=== PATIENT | male | born 1945 | race Caucasian/White ===

== ENCOUNTER 2018-11-10 12:30 | Emergency (ER) | payer OTHER, MEDICAID ==
[~2018-11-10] VITALS: Wt 61.6 kg
--- NOTE | 2018-11-10 12:57 | ERD ---
ER Documentation Chief Complaint Chief Complaint 45 min onset of weakness n/v after walking. no cp mild dizziness HPI 72-year-old male history of hypertension, anxiety chronic back pain presents the ED via ambulance planing of dizziness, nausea and vomiting. Patient awoke from a nap and then while rolling over experienced acute onset of severe, whirling, dizziness with nausea and multiple episodes of nonbloody nonbilious emesis. Symptoms are exacerbated by any head movement and relieved by remaining, supine and mobile with eyes closed. Chronic tinnitus but denies hearing changes, ear pain or discharge. No recent illnesses, URI symptoms, nasal congestion, rhinorrhea or odynophagia. Denies headache, visual changes, focal weakness or numbness. No syncope or loss of consciousness. No abdominal pain, chest pain, palpitations or shortness of breath. No neck or back pain. No skin rash. No fevers or chills. ROS All systems reviewed and are negative except as per history of present illness. Medications Home Meds Active Scripts Ondansetron (Ondansetron Odt) 4 Mg Tab.rapdis, 4 MG PO Q6H PRN for NAUSEA AND/OR VOMITING, #10 TAB Prov:PREETHI DE LUNA MD 11/10/18 Meclizine Hcl* (Antivert*) 12.5 Mg Tab, 25 MG PO Q6H PRN for DIZZINESS, #12 TAB Prov:PREETHI DE LUNA MD 11/10/18 Reported Medications Losartan Potassium* (Losartan Potassium*) 25 Mg Tablet, 25 MG PO DAILY, TAB 11/10/18 Amlodipine Besylate* (Amlodipine Besylate*) 10 Mg Tablet, 10 MG PO DAILY, #30 TAB 11/10/18 Hydrocodone/Acetaminophen ([place] 7.5-325 Tablet) 1 Each Tablet, 1 EACH PO DAILY PRN for ANXIETY, TAB 11/10/18 Zolpidem Tartrate* (Zolpidem Tartrate*) 10 Mg Tablet, 10 MG PO QHS PRN for INSOMNIA, #30 TAB 11/10/18 Ranitidine Hcl* (Ranitidine Hcl*) 150 Mg Tablet, 150 MG PO HS, #30 TAB 11/10/18 Diphenhydramine Hcl (Banophen) 25 Mg Tablet, 25 MG PO DAILY PRN for PRN, TAB 11/10/18 Discontinued Reported Medications Ranitidine Hcl* (Ranitidine Hcl*) 150 Mg Tablet, 150 MG PO HS, #30 TAB 11/10/18 Allergies Allergies: Coded Allergies: No Known Allergy (Unverified , 11/10/18) PMhx/Soc Reviewed in chart. As per HPI. History of Surgery: Yes (arm injury/ repair. Left carotid endarterectomy) Hx Neurological Disorder: Yes (stroke) Hx Cardiac Disorders: Yes (HTN, cholesterol) Hx Psychiatric Problems: Yes (Anxiety and insomnia) Hx Miscellaneous Medical Probl: Yes (carotid atery stenosis, chronic back pain) Hx Alcohol Use: No Hx Substance Use: No Hx Tobacco Use: No Smoking Status: Never smoker FmHx No cancer, sudden cardiac or stroke Physical Exam Vitals Vital Signs Date Temp Pulse Resp B/P (MAP) Pulse Ox O2 O2 Flow FiO2 Time Delivery Rate 11/10/18 68 16 126/58 96 Room Air 17:24 (80) 11/10/18 75 30 118/92 100 Room Air 12:51 (101) 11/10/18 97.8 70 18 98/64 (75) 98 12:43 Physical Exam Const: Moderate distress Head: Atraumatic Eyes: Pupils equal reactive to light, extraocular movements are intact. Normal Conjunctiva. Nystagmus with rapid beat to the left, fatigable. ENT: Normal External Ears, Nose and Mouth. Tympanic membranes are benton and mobile bilaterally. No discharge. Pharynx is clear without erythema or exudate. Neck: Full range of motion. Nontender. Carotids are 2+ bilaterally without bruits. Resp: Breath sounds are equal and clear to auscultation bilaterally Cardio: Regular rate and rhythm, no murmurs, gallops or rubs. Abd: Soft, non tender, non distended. No rebound or guarding. Normal bowel sounds. No masses. Skin: No petechiae or rashes Back: No midline or flank tenderness Ext: No cyanosis, or edema. Pulses are 4+ in all extremities. Neur: Awake and alert. Cranial nerves II through XII are grossly intact. Motor and sensory equal bilaterally. No pronator drift. DTRs are symmetrical. Plantar reflexes are downgoing. Gait is not tested. Psych: Cooperative, anxious but not depressed. Result Diagram: 11/10/18 1330 11/10/18 1330 Results 24 hrs Laboratory Tests Test 11/10/18 13:30 White Blood Count 14.5 10^3/ul Red Blood Count 4.58 10^6/ul Hemoglobin 13.6 g/dl Hematocrit 39.8 % Mean Corpuscular Volume 86.9 fl Mean Corpuscular Hemoglobin 29.7 pg Mean Corpuscular Hemoglobin Concent 34.2 g/dl Red Cell Distribution Width 12.0 % Platelet Count 331 10^3/UL Mean Platelet Volume 10.7 fl Immature Granulocytes % 1.300 % Neutrophils % 70.6 % Lymphocytes % 18.9 % Monocytes % 7.9 % Eosinophils % 0.7 % Basophils % 0.6 % Nucleated Red Blood Cells % 0.0 /100WBC Immature Granulocytes # 0.190 10^3/ul Neutrophils # 10.2 10^3/ul Lymphocytes # 2.7 10^3/ul Monocytes # 1.1 10^3/ul Eosinophils # 0.1 10^3/ul Basophils # 0.1 10^3/ul Nucleated Red Blood Cells # 0.0 10^3/ul Prothrombin Time 12.0 Sec Prothrombin Time Ratio 0.9 INR International Normalized Ratio 0.88 Activated Partial Thromboplast Time 27.9 Sec Sodium Level 138 mmol/L Potassium Level 3.6 mmol/L Chloride Level 96 mmol/L Carbon Dioxide Level 20 mmol/L Anion Gap 22 Blood Urea Nitrogen 15 mg/dl Creatinine 0.98 mg/dl Est Glomerular Filtrat Rate mL/min mL/min Glucose Level 140 mg/dl Calcium Level 9.5 mg/dl Troponin I < 0.012 ng/ml Current Medications Medications Dose Sig/Evelyn Start Time Status Last (Trade) Ordered Route PRN Stop Time Admin Dose Reason Admin Sodium 500 ml @ Q1H STAT 11/10/18 DC 11/10/18 Chloride 500 mls/hr IV 13:09 13:17 11/10/18 14:08 10 mg ONCE STAT 11/10/18 DC 11/10/18 Metoclopramid IV 13:09 13:18 e HCl 11/10/18 13:12 (Reglan) Ondansetron 4 mg ONCE STAT 11/10/18 DC 11/10/18 HCl (Zofran IV 13:09 13:17 Inj) 11/10/18 13:12 25 mg ONCE STAT 11/10/18 DC 11/10/18 Diphenhydrami IV 13:09 13:17 ne HCl 11/10/18 13:12 (Benadryl) Procedures/MDM DOCUMENTS REVIEWED: ED nurse, no prior records. EKG: Time: 1253. Sinus rhythm. Ventricular rate 76. Normal CA and QRS. QTc borderline prolonged at 483 ms. No ectopy. No acute ST-T wave changes my Interpretation IMAGING: PROCEDURE: CT head CLINICAL INDICATION: Vertigo and dizziness TECHNIQUE: Contiguous 2.5 mm axial images were obtained from the vertex to the skull base. No intravenous contrast was administered. The calculated dose length product (DLP) = 634.23 mGy-cm. CTDlvol = 39.25 mGy. One or more of the following dose reduction techniques were used: Automated exposure control, adjustment of the mA and or KV according to patient size, or use of iterative reconstruction technique. DICOM images are available. COMPARISON: None FINDINGS: There is no acute intracranial hemorrhage or acute territorial infarct there is an old left basal ganglial right external capsule lacunar infarcts. No mass or mass effect is seen on this noncontrast study. Age appropriate cortical and central atrophy is seen. The ventricles are normal in size for the degree of atrophy. Moderate small vessel ischemic changes in the periventricular white matter. Visualized paranasal sinuses are normally aerated. The bony calvarium is unremarkable. IMPRESSION: 1. No acute intracranial hemorrhage or acute territorial infarct. 2. Old bilateral lacunar infarcts. 3. Age-related cortical and central atrophy. 4. Moderate small vessel ischemic change in periventricular white matter RPTAT: HH .Julio Petersen MD, MD Date Time Electronically viewed and signed by .Julio Petersen MD, on 11/10/2018 14:04 .W/ REEXAMINATION/REEVALUATION: Time: 14:14. VS as per nursing notes. Improving. Mild nausea but no vomiting. Abdomen soft, nontender. Time: 15:40. Vital signs as documented. Clinically improved. Minimal residual dizziness. Time: 17:22. Symptoms resolved. No dizziness, nausea or vomiting. Taking PO's well. Ambulatory with a steady gait. OBSERVATION NOTE: At 13:18 the patient was entered into observation status to es tablish the need for admission. During this time the patient was treated for dizziness. Additionally, extensive evaluation including, CBC, chemistry, EKG, troponin and CT of the brain were preformed with results interpreted as above. Vitals signs were monitored and multiple, frequent repeat exams were performed At 17:22 the patient was reexamined; vital signs are normal, afebrile, dizziness resolved, no nausea/vomiting, ambulatory with a steady gait and tolerating PO's. Based on these findings the patient was discharged from observation as it was determined that the patient was improved and met criteria for discharge. TOTAL OBSERVATION TIME: 4 Hours. 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 Differential diagnosis includes but is not limited to benign position al vertigo, Mnire's disease, labyrinthitis, cardiac dysrhythmia, TIA/CVA, intracranial hemorrhage, seizure, meningitis, encephalitis, elevated ICP, acute bleeding, aortic dissection, carotid artery dissection and abdominal aortic aneurysm are considered. CBC reveals mild leukocytosis and anemia but no thrombocytopenia. Chemistry to evaluate for electrolyte abnormalities, hypoglycemia and renal insufficiency is unremarkable. EKG is negative for ischemic changes or dysrhythmia. Troponin is negative. CT of the brain to evaluate for hemorrhage, ischemia, mass and hydrocephalus reveals old lacunar infarcts, cortical atrophy and and small vessel ischemic changes but no extra- axial fluid collections or acute ischemic changes. Patient presents with signs and symptoms symptoms consistent with peripheral vertigo and an acute vestibular syndrome likely benign positional vertigo. The overall picture does not suggest posterior CVA or vertebrobasilar TIA. Abdominal exam is completely benign without tenderness, rebound, guarding, signs of peritonitis or pulsatile mass and advanced imaging is not indicated. Symptoms resolved completely with antihistamines and antiemetics. Patient's observed in the ED for over 4 hours. Neurologic symptoms have been evaluated in the department and have stabilized. Of note is patient's h/o chronic pain and he receives monthly prescriptions for [place] 5/325mg #100 and Ambien 10 mg #30. Stable for discharge with precautionary instructions and outpatient follow-up as counseled. Counseled patient and family regarding diagnosis, diagnostic results and for follow-up. Departure Diagnosis: Primary Impression: Dizziness Additional Impressions: Peripheral vertigo Laterality: unspecified laterality Qualified Codes: H81.399 - Other peripheral vertigo, unspecified ear Nausea & vomiting Vomiting type: unspecified Vomiting Intractability: unspecified Qualified Codes: R11.2 - Nausea with vomiting, unspecified Essential hypertension Condition: Stable (Improved) PREETHI DE LUNA MD Nov 10, 2018 12:57
[2018-11-10] MEDS ORDERED: ONDANSETRON 4 MG INJ IV STA (13:09)
[2018-11-10] MEDS ORDERED: SOD CHLORIDE 0.9% 500 ML IV STA (13:09)
[2018-11-10] MEDS ORDERED: DIPHENHYDRAMINE 50 MG INJ IV STA (13:09)
[2018-11-10] MEDS ORDERED: METOCLOPRAMIDE 10 MG INJ IV STA (13:09)
[2018-11-10] MEDS ORDERED: DIPH25TA27 PO (14:10)
[2018-11-10] MEDS ORDERED: RANI150T5 PO ×2 (14:10→14:11)
[2018-11-10] MEDS ORDERED: HYDR-4012 PO (14:12)
[2018-11-10] MEDS ORDERED: ZOLP10TA5 PO (14:12)
[2018-11-10] MEDS ORDERED: AMLO-147 PO (14:13)
[2018-11-10] MEDS ORDERED: LOSA25TA12 PO (14:13)
[2018-11-10 17:24] VITALS: BP 126/58; PULSE 68; RESP 16
[2018-11-10] MEDS ORDERED: MECL12.574 PO (17:40)
[2018-11-10] MEDS ORDERED: ONDA4TAB14 PO (17:40)
== END 2018-11-10 17:49 | disposition home or self-care (01) ==
LOC: E/R 12:30
DX: H81.399 Other peripheral vertigo, unspecified ear (principal); R40.2142 Coma scale, eyes open, spontaneous, at arrival to emergency department; R40.2252 Coma scale, best verbal response, oriented, at arrival to emergency department; R40.2362 Coma scale, best motor response, obeys commands, at arrival to emergency department; I10 Essential (primary) hypertension; R06.02 Shortness of breath; Z86.73 Personal history of transient ischemic attack (TIA), and cerebral infarction without residual deficits
CPT/HCPCS: 36415; 70450; 80048; 84484; 85025; 85610; 85730; 93005; 96361; 96374; 96375; 99285; J1200; J2405; J2765; J7040